=== PATIENT | female | born 1995 | race Caucasian/White ===

== ENCOUNTER 2017-02-08 16:42 | Emergency (ER) | payer BC ==
[2017-02-08] MEDS ORDERED: Morphine INJ* 4 MG/ML 1 ML CARPUJECT IV ONE (17:22)
[2017-02-08] MEDS ORDERED: Metoclopramide IV* 5 MG/ML 2 ML VIAL IV SLOW PU ONE (17:23)
[2017-02-08] MEDS ORDERED: NS 0.9% 1000 ML* 1,000 ML IV ONE (17:25)
[2017-02-08] MEDS ORDERED: Midazolam* 1 MG/ML 5 ML VIAL (5 MG) ONE (18:17)
[2017-02-08] MEDS ORDERED: fentaNYL* 50 MCG/ML 2 ML VIAL (100 MCG VIAL) ONE (18:17)
[2017-02-08] MEDS ORDERED: Naloxone* 0.4 MG/ML 1 ML VIAL ONE (18:17)
[2017-02-08] MEDS ORDERED: Flumazenil* 0.1 MG/ML 5 ML MDV ONE (18:18)
[2017-02-08] MEDS ORDERED: NS 0.9% 1000 ML* 1,000 ML IV SCH (18:25)
[2017-02-08] MEDS ORDERED: Midazolam* 1 MG/ML 5 ML VIAL (5 MG) SLOW PUSH ONE (18:25)
--- NOTE | 2017-02-08 18:26 | RAD ---
INDICATION: Fall. Elbow pain. COMPARISON: None A single lateral view shows posterior dislocation with joint effusion with hemarthrosis and a presumed small curvilinear avulsion fragment. The donor site is not identified on this single view IMPRESSION: POSTERIOR DISLOCATION WITH SMALL AVULSION AND HEMARTHROSIS.
[2017-02-08] MEDS ORDERED: Midazolam* 1 MG/ML 10 ML VIAL (10 MG) IV ONE (18:52)
[2017-02-08] MEDS ORDERED: fentaNYL* 50 MCG/ML 2 ML VIAL (100 MCG VIAL) IV SLOW PU ONE (18:56)
--- NOTE | 2017-02-08 18:56 | RAD ---
INDICATION: Postreduction COMPARISON: Prereduction films same date TECHNIQUE: AP and lateral views were obtained. FINDINGS: There is satisfactory reduction. No acute fractures seen. The curvilinear radiodensity identified previously is now believed to be artifact. There is no plain radiographic evidence of an acute fracture there is a small joint effusion. IMPRESSION: SATISFACTORY REDUCTION.
[2017-02-08 19:44] VITALS: BP 121/74
--- NOTE | 2017-02-20 19:39 | ED ---
Harrison Navas Benjamin, scribed for Franklin Douglas MD on 02/08/17 at 1730 . Upper Extremity Pain - HPI Summary HPI Summary: 22yo female presents with right elbow pain after falling off the horse 30 minutes ago. Pt reports landing on her right hand. Last meal was at noon today. - History of Current Complaint Chief Complaint: EDExtremityUpper Stated Complaint: RT ELBOW INJURY/FALL FROM HORSE Time Seen by Provider: 02/08/17 17:13 Hx Obtained From: Patient, Other: - friends Hx Last Menstrual Period: 2 WEEKS AGO Mechanism Of Injury: Fall From Height Of: - from horse back Onset/Duration: Started Minutes Ago - 30 minutes, Traumatic, Still Present Timing: Constant Severity Initially: Severe Severity Currently: Severe Pain Location: Elbow - right Character: Throbbing, Spasmodic Aggravating Factor(s): Movement Alleviating Factor(s): Other - immobillization Associated Signs & Symptoms: Positive: Negative - Allergies/Home Medications Allergies/Adverse Reactions: Allergies Allergy/AdvReac Type Severity Reaction Status Date / Time Ibuprofen [From Motrin] Allergy Severe Rash Verified 04/17/15 18:00 PMH/Surg Hx/FS Hx/Imm Hx - Surgical History Surgery Procedure, Year, and Place: WISDOM TEETH Infectious Disease History: No Infectious Disease History: Denies: Traveled Outside the [place] in Last 30 Days - Family History Known Family History: Positive: None Negative: Cardiac Disease - Social History Occupation: Student Lives: Dormitory/Roommates Alcohol Use: None Substance Use Type: Reports: None Smoking Status (MU): Never Smoked Tobacco Review of Systems Constitutional: Negative Eyes: Negative ENT: Negative Cardiovascular: Negative Respiratory: Negative Gastrointestinal: Negative Genitourinary: Negative Positive: Arthralgia - Right elbow pain Skin: Negative Neurological: Negative Psychological: Normal All Other Systems Reviewed And Are Negative: Yes Physical Exam - Summary Physical Exam Summary: VITAL SIGNS: Reviewed. GENERAL: Patient is a well-developed and nourished FEMALE who is lying umcomfortable in the stretcher. Patient is not in any acute respiratory distress. HEAD AND FACE: No signs of trauma. No ecchymosis, hematomas or skull depressions. No sinus tenderness. EYES: PERRLA, EOMI x 2, No injected conjunctiva, no nystagmus. EARS: Hearing grossly intact. Ear canals and tympanic membranes are within normal limits. MOUTH: Oropharynx within normal limits. NECK: Supple, trachea is midline, no adenopathy, no JVD, no carotid bruit, no c- spine tenderness, neck with full ROM. CHEST: Symmetric, no tenderness at palpation LUNGS: Clear to auscultation bilaterally. No wheezing or crackles. CVS: Regular rate and rhythm, S1 and S2 present, no murmurs or gallops appreciated. ABDOMEN: Soft, non-tender. No signs of distention. No rebound no guarding, and no masses palpated. Bowel sounds are normal. EXTREMITIES: Limited ROM at right elbow due to pain, FROM in all other major joints, no edema, no cyanosis or clubbing. Pt is holding the right elbow at a 90 degree angle, with left hand over the right hand. Deformity over the right elbow. Neurovascular intact distally. NEURO: Alert and oriented x 3. No acute neurological deficits. Speech is normal and follows commands. SKIN: Dry and warm Pt is holding the right elbow at a 90 degree angle, with left hand over the right hand. Deformity over the right elbow. Neurovascular intact distally. Triage Information Reviewed: Yes Vital Signs On Initial Exam: Initial Vitals Temp Pulse Resp BP Pulse Ox 97.8 F 80 20 130/90 100 02/08/17 16:50 02/08/17 16:50 02/08/17 16:50 02/08/17 16:50 02/08/17 16:50 Vital Signs Reviewed: Yes Procedures - Procedure Summary Procedure Summary: Moderate sedation procedure: Pt was given fentanyl 100mg, versed 5mg by IV push. Pt tolerated procedure well. Vital signs remained stable during the procedure. No reversal agent was used. Pt is await Reduction of the right elbow: Traction and counter traction and supination. Diagnostics - Vital Signs Vital Signs Temp Pulse Resp BP Pulse Ox 02/08/17 16:50 97.8 F 80 20 130/90 100 - Laboratory Lab Statement: Any lab studies that have been ordered have been reviewed, and results considered in the medical decision making process. - Radiology Right elbow XR prior to reduction Xray Interpretation: No Acute Changes - IMPRESSION: POSTERIOR DISLOCATION WITH SMALL AVULSION AND HEMARTHROSIS. Radiology Interpretation Completed By: Radiologist - ED physician has reviewed this radiology report and agrees. Right Elbow XR, post reduction Xray Interpretation: No Acute Changes - IMPRESSION: SATISFACTORY REDUCTION. Radiology Interpretation Completed By: Radiologist - ED physician has reviewed this radiology report and agrees. Course/Dx - Course Course Of Treatment: 22yo female presents with right elbow pain after falling off the horse 30 minutes ago. Pt reports landing on her right hand. Last meal was at noon today. . Pre-reduction XR shows right elbow dislocation. Pt's right elbow has been successfully reduced under moderate sedation. Post reduction XR indicates successful reduction without an acute fx. Posterior splint was applied from the right elbow mid humerus to mid hand. Pt will be discharged with a splint, and an ortho follow up. - Diagnoses Provider Diagnoses: Dislocation of right elbow Discharge - Discharge Plan Condition: Stable Disposition: HOME Patient Education Materials: Ibuprofen (By mouth), Elbow Dislocation (ED) Referrals: [facility] [Primary Care Provider] - () David Titus MD [Medical Doctor] - (Please follow up with Dr. Titus in 1- 2 days. ) Additional Instructions: RETURN TO EMERGENCY DEPARTMENT FOR ANY NEW OR WORSENING SYMPTOMS The documentation as recorded by the Harrison león Benjamin accurately reflects the service I personally performed and the decisions made by , Franklin Douglas MD.
== END 2017-02-08 19:44 | disposition home or self-care (01) ==
LOC: ED 16:42
DX: S53.104A Unspecified dislocation of right ulnohumeral joint, initial encounter (principal); V80.010A Animal-rider injured by fall from or being thrown from horse in noncollision accident, initial encounter; Y93.52 Activity, horseback riding; Y92.9 Unspecified place or not applicable; Y99.9 Unspecified external cause status
CPT/HCPCS: 24605; 96374; 96375; 99283; J2250; J2270; J2310; J2765; J3010

== ENCOUNTER 2018-06-24 12:37 | Emergency (ER) | payer BC ==
--- NOTE | 2018-06-24 12:44 | UC ---
Upper Extremity HPI - HPI Summary HPI Summary: patient slipped and fell onto grassy ground last pm and injured R elbow. was able to get up w/o assist. today elbow feels swollen and stiff dislocated R elbow 2016 - History of Current Complaint Stated Complaint: ELBOW INJURY Time Seen by Provider: 06/24/18 12:38 Hx Obtained From: Patient Hx Last Menstrual Period: 2 WEEKS AGO ?: No Onset/Duration: Sudden Onset Severity Initially: Moderate Severity Currently: Moderate Character: Throbbing, Stiffness Aggravating Factor(s): Movement Alleviating Factor(s): Rest Associated Signs And Symptoms: Positive: Swelling. Negative: Numbness/Tingling - Allergies/Home Medications Allergies/Adverse Reactions: Allergies Allergy/AdvReac Type Severity Reaction Status Date / Time ibuprofen Allergy Rash Verified 06/24/18 12:49 Home Medications: Home Medications Control 1 tab PO DAILY 06/24/18 [History Confirmed 06/24/18] Fexofenadine (NF) [Daksha (NF)] 60 mg PO DAILY 06/24/18 [History Confirmed ] PMH/Surg Hx/FS Hx/Imm Hx Previously Healthy: Yes - Surgical History Surgical History: Yes Surgery Procedure, Year, and Place: WISDOM TEETH - Family History Known Family History: Positive: None - Social History Occupation: Student Lives: With Family Alcohol Use: None Substance Use Type: None Smoking Status (MU): Never Smoked Tobacco Review of Systems All Other Systems Reviewed And Are Negative: Yes Constitutional: Positive: Negative Respiratory: Positive: Negative Cardiovascular: Positive: Negative Musculoskeletal: Positive: Decreased ROM - R elbow Neurological: Positive: Negative Psychological: Positive: Negative Physical Exam Triage Information Reviewed: Yes Vital Signs Reviewed: Yes Respiratory Exam: Normal Cardiovascular: Positive: Pulses Normal, Brisk Capillary Refill Musculoskeletal: Positive: ROM Limited @ - R elbow, ree suppination, Other: - swelling Neurological Exam: Normal Psychological Exam: Normal Skin Exam: Normal Diagnostics - Radiology No standard instances Radiology Interpretation Completed By: Radiologist - ulna fracture Upper Extremity Course/Dx - Differential Dx/Diagnosis Differential Diagnosis/HQI/PQRI: Contusion, Fracture (Closed), Strain, Sprain Provider Diagnosis: Fracture of right elbow Discharge - Sign-Out/Discharge Documenting (check all that apply): Patient Departure All imaging exams completed and their final reports reviewed: Yes - Discharge Plan Condition: Good Disposition: HOME Patient Education Materials: Elbow Fracture (ED) Referrals: [facility] [[id number], APPLICATION, OTHER] - Parvin Jones MD [Medical Doctor] - 1 Day (Call tomorrow for appointment) Additional Instructions: Keep splint clean and dry, use sling tylenol as directed for pain - Billing Disposition and Condition Condition: GOOD Disposition: Home - Attestation Statements Provider Attestation: I was available for consult. This patient was seen by the EDITH. The patient was not presented to , seen by or examined by ny -Len Jones MD
[2018-06-24 12:49] VITALS: BP 142/85
== END 2018-06-24 14:09 | disposition home or self-care (01) ==
LOC: UCEAST 12:37
DX: S42.131A Displaced fracture of coracoid process, right shoulder, initial encounter for closed fracture (principal); W01.0XXA Fall on same level from slipping, tripping and stumbling without subsequent striking against object, initial encounter; Y92.9 Unspecified place or not applicable; Z88.6 Allergy status to analgesic agent
CPT/HCPCS: 99213; G0463